=== PATIENT | male | born 1965 | race Caucasian/White ===

== ENCOUNTER 2024-08-12 08:33 | Emergency (ER) | payer SELFPAY ==
[2024-08-12 08:38] VITALS: BP 192/114
--- NOTE | 2024-08-12 10:17 | ED.GENMED ---
History of Present Illness
General
Chief Complaint: Abdominal Symptoms
Time Seen by Provider: 08/12/24 08:55
History of Present Illness
History of Present Illness:
59-year-old male presents complaining of abdominal hernia. Patient has had this hernia for some time but has gotten larger. It is becoming more uncomfortable to larger gets. He is tolerating oral intake. He denies nausea, vomiting or
constipation. Patient does have insurance barriers to outpatient follow-up.
Phy Exam
Physical Exam
Physical Exam:
General: Awake, Alert, Oriented X3. No acute distress.
Vitals: unremarkable
Head: Atraumatic
Eyes: Pupils equal, EOMI
Throat: Airway intact, no exudates
Neck: Trachea midline
Lungs: Clear and equal b/l
Heart: Regular rate, no murmurs
Abd: Soft, large umbilical hernia which is reducible. The skin overlying the hernia is not particularly erythematous, No pulsatile mass
Neuro: Nonfocal
Skin: Warm, dry, no rash
Extremities: pulses equal b/l, no edema
Course
Orders/Labs/Results
Orders:
Orders
08/12/24 10:24
Case Management Consult ONCE
Case Management Consult: Other
Requested By:: PT/FAMILY
Comment: Assistance with obtaining insurance
Vital Signs
Initial and Last Documented VS:
Initial Vital Signs
Temp Pulse Resp BP Pulse Ox
99.0 F 111 20 192/114 97
08/12/24 08:38 08/12/24 08:38 08/12/24 08:38 08/12/24 08:38 08/12/24 08:38
Last Documented Vital Signs
Temp Pulse Resp BP Pulse Ox
99.0 F 111 20 192/114 97
08/12/24 08:38 08/12/24 08:38 08/12/24 08:38 08/12/24 08:38 08/12/24 08:38
MDM/Problems Addressed
Differential Diagnosis Includes:
Abdominal wall hernia
MDM/Problems Addressed:
Patient presents with a abdominal wall hernia which is progressive in size but not causing any symptoms of obstruction or incarceration. Patient stable for discharge home. This is an outpatient follow-up situation. We connected the patient with
case management to help with insurance issues
*Critical Care Note
Total Time (30-74mins, 75-104mins- exclusive of procedures): Not Applicable
ED Attending Note
-
Portions of this chart may have been created with voice recognition software.� Occasional wrong word or��sound alike� substitutions may have occurred due to the inherent limitations of voice recognition software.
Discharge Plan
Departure
Patient Disposition: Home (Routine Discharge)
Date of Disposition: 08/12/24
Time of Disposition: 10:17
Patient with high blood pressure during this ER visit?: Yes
Condition: Good
Discharge Problem:
Hernia of abdominal wall
Instructions: Abdominal Hernia
Referrals:
[facility] [Outside]
NONE,* [Family Provider] -
Chad Garcia MD [Active] -
Discharge Date and Time
Print Language: FRENCH
--- NOTE | 2024-08-12 10:47 | CM ---
CM reviewed patient's chart. Consult placed because patient is uninsured. CM introduced self and role. Patient's friend, who assists with all his financial and insurance information and needs was also in the room. CM gave patient an 'uninsured
packet' which includes resources with several organization in [facility], financial assistance, rx savings card, [facility] and how to apply for MA.
Patient's friend had assisted in applying patient for MA, but missed the deadline to send a copy of a document. She and patient understand they will have to reapply for MA.
== END 2024-08-12 10:20 | disposition home or self-care (01) ==
LOC: EMR 08:33
PROVIDERS: EMERGENCY PHYSICIAN Emergency Medicine
DX: K42.9 Umbilical hernia without obstruction or gangrene (principal); R03.0 Elevated blood-pressure reading, without diagnosis of hypertension; Z59.7 Insufficient social insurance and welfare support
CPT/HCPCS: 99281

== ENCOUNTER 2024-10-13 03:36 | Emergency (ER) | payer SELFPAY ==
[2024-10-13 03:46] VITALS: BP 155/100
[2024-10-13 03:47] VITALS: BP 122/68
[2024-10-13 03:53] VITALS: BMI 45.0
[2024-10-13 04:00] VITALS: BP 114/65
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
[2024-10-13] MEDS: NSS 500 IV (04:25)
[2024-10-13 04:32] LABS: % Basophils 0.7 % (0-2); % Eosinophils 0.4 % (0-6); % Immature Granulocytes 0.6 % (0-0.5); % Lymphocytes 20.5 % (20.5-51.1); % Monocytes 5.5 % (1.7-9.3); % Neutrophils 72.3 % (42.2-75.2); Absolute Basophils 0.1 10^3/uL (0-0.2); Absolute Lymphocytes 1.4 10^3/uL (1.2-3.4); Absolute Monocytes 0.4 10^3/uL (0.1-0.6); Hematocrit 46.6 % (39.0-52.0); Hemoglobin 15.4 g/dL (13.0-18.0); Mean Corpuscular Hgb 29.8 pg (27.0-31.0); Mean Corpuscular Volume 90.1 fL (80.0-94.0); Mean Platelet Volume 8.7 fL (7.4-10.4); Nucleated Red Blood Cells % 0 % (-); Platelet Count 226 10^3/uL (130-400); Red Blood Cell Count 5.17 10^6/uL (4.70-6.10); Red Cell Dist. Width 13.5 % (11.5-14.5); White Blood Cell Count 6.9 10^3/uL (4.8-10.8)
[2024-10-13 04:55] LABS: ALT (SGPT) 23 U/L (0-50); AST (SGOT) 26 U/L (17-59); Albumin 4.4 g/dl (3.5-5.0); Alcohol 241 mg/dl; Alkaline Phosphatase 60 U/L (38-126); Blood Urea Nitrogen 19 mg/dl (9-20); Calcium 8.4 mg/dl (8.4-10.2); Carbon Dioxide 26 mmol/L (22-30); Chloride 101 mmol/L (98-107); Estimated Creatinine Clearance > 125 ml/min; Glucose 131 mg/dl (70-99); Potassium 4.1 mmol/L (3.5-5.1); Sodium 141 mmol/L (135-145); Total Bilirubin 0.3 mg/dl (0.2-1.3); Total Protein 7.4 g/dl (6.3-8.2); eGFR > 60.00
[2024-10-13] MEDS: MULTIVITAMIN 1011 ML IV (04:56)
[2024-10-13] MEDS: MULTIVITAMIN 1011 MG IV (04:56)
[2024-10-13 05:54] LABS: Amphetamines Negative (Negative); Barbiturates Negative (Negative); Benzodiazepines Negative (Negative); Buprenorphine Negative (Negative); Cocaine Negative (Negative); Marijuana Negative (Negative); Methadone Negative (Negative); Methamphetamines Negative (Negative); Opiates Negative (Negative); Phencyclidine Negative (Negative); Tricyclic Antidepressants Negative (Negative)
== END 2024-10-13 09:12 | disposition home or self-care (01) ==
LOC: EMR 03:36
PROVIDERS: EMERGENCY PHYSICIAN Emergency Medicine
DX: F10.129 Alcohol abuse with intoxication, unspecified (principal); V43.52XA Car driver injured in collision with other type car in traffic accident, initial encounter; Z65.3 Problems related to other legal circumstances; E66.01 Morbid (severe) obesity due to excess calories
CPT/HCPCS: 99284; 96365; 96366 ×2; 80053; 80306; 82077; 85025

== ENCOUNTER 2025-10-03 06:28 | Day surgery (SDC) | payer OTHER, SELFPAY ==
[2025-10-03] VITALS (9 sets, daily range): BP systolic 92–152; BP diastolic 52–85; BMI 41.3
[2025-10-03] MEDS: TYLENOL 1000 MG PO (11:26)
[2025-10-03] MEDS: NORMOSOL-R/PLASMALYTE-A 1000 IV (11:33)
--- NOTE | 2025-10-03 13:25 | W.SUR.PREOP ---
Pre-Operative Surgical Note
-
I have examined this patient prior to the performance of the scheduled procedure.
The patient's condition is unchanged from the time of the current History and
Physical and the patient is able to undergo the scheduled procedure.
--- NOTE | 2025-10-03 13:25 | HP.FOC2 ---
Focused History & Physical
Chief Complaint
HPI:
Chief Complaint: This is a 60-year-old male who presents with incarcerated ventral hernia
HPI / Indication for Planned Procedure: This is a 60-year-old male who presents with an incarcerated ventral hernia. Will plan for a robotic/open hybrid incarcerated ventral hernia repair with mesh.
Relevant Past Medical History: Negative
Relevant Social History: Negative
Relevant Family History: Negative
Relevant Past Surgical History: Negative
Review of Systems
Review of Pertinent Systems: All Systems Negative
Medication
See Medication form for detailed medications: Yes
Medication List (including Herbals & OTC):
lisinopril 5 mg tablet 5 mg PO DAILY 10/02/25
metoprolol succinate 50 mg tablet,extended release 24 hr 50 mg PO DAILY 10/02/25
tirzepatide (weight loss) 10 mg/0.5 mL subcutaneous solution (Zepbound) 10 mg SC WE 10/02/25
Medications Reviewed: Yes
Allergies and Reactions
Patient has Allergies: No
Noted Allergies and Reactions:
Allergy/AdvReac Type Severity Reaction Status Date / Time
No Known Allergies Allergy Verified 10/03/25 11:12
Pertinent Physical Exam
All Other Systems: Negative
Head/Neck: Normal
Diagnosis / Assessment
This is a 60-year-old male who presents with an incarcerated ventral hernia. Will plan for a robotic/open hybrid incarcerated ventral hernia repair with mesh.
Plan / Procedure
This is a 60-year-old male who presents with an incarcerated ventral hernia. Will plan for a robotic/open hybrid incarcerated ventral hernia repair with mesh.
Anesthesia/Sedation to be done by Anesthesia Provider: Yes
--- NOTE | 2025-10-03 14:32 | CM ---
Was asked to meet with pt's friend. I met with pt's friend Eryn who expressed concern about pt's living situation. She does not feel he can safely go back to his apartment, states another friend is at the apartment and said there are dog feces in
the apartment and there is not running water at one of the sinks and also evidence of back mold. Eryn said there is a team that can assist with clean up but she feels it is unsanitary for him to return there after just having surgery. Discussed he
will not qualify for SNF placement, also discussed going to a hotel but she is not sure he has the money for that. She does have phone numbers for family members and will reach out to see if he can stay with one of them. Suggested contacting [place]
[facility], she will reach out to them. Plan is for pt to be admitted overnight. CM will follow up with pt in am.
--- NOTE | 2025-10-03 17:43 | W.IMMPOSTOP ---
Surgical Immed Post Op Note
-
Primary Surgeon: Jorge Romero MD
Assisting Surgeon: None
Tractor Trailer Operator: Emily Hughes NP
Pre-op Diagnosis: Incarcerated ventral hernia
Post-op Diagnosis: Same
Procedure Performed:
1. Robotic assisted, open incarcerated ventral hernia repair with mesh
2. Partial omentectomy
3. Omphalectomy
Anesthesia Type: General
Specimen / Cultures: Hernia contents
Estimated Blood Loss: 11 cc
Complications: None
Operative Findings: Lopes catheter and NG tube were placed the on induction. Bilateral tap blocks were performed on entry. 4 cm umbilical/ventral hernia defect containing a significant amount of omentum which was resected. A preperitoneal flap
was made. The overlying skin of the umbilical defect was very thin and could not be salvaged so the skin along with the bellybutton was excised. A [address] coated polypropylene mesh was inserted through the defect prior to
closure with a running 0 symmetric. Pneumoperitoneum was reestablished and our flap was continued to accommodate the mesh which was secured in place with tacking 2-0 Vicryl sutures. The flap was then closed to completely exclude the mesh using 2-0
PDS suture. The midline defect was closed with 2-0 PDS suture. The subcutaneous space was closed with running 3-0 Vicryl sutures and the skin was closed with lou as were the port sites.
POST OP PLAN:
Imaging: None
Labs: Routine AM
Diet: Clears tonight, advance to Regular as tolerated
Analgesia: Tylenol 650mg q6 Shane, Dilaudid 0.5mg q2h PRN
Neuro/vascular checks: Per unit protocol
AC/AP: Hold Therapeutic AC, Ok for DVT PPx
Activity: Ad Bhavna
Wound/Incisions/Drains: Routine
Abx: None
Dispo: RNF, anticipate discharge home tomorrow pending pain control.
--- NOTE | 2025-10-03 18:45 | PTCARENOTE ---
received patient from PACU via bed around 183. Denies pain. Abdomen midline dressing with scant drainage. 3 lap sites left abdomen ENEDELIA with lou. Patient oriented to unit. Call lopez in reach.
[2025-10-03] MEDS: TORADOL 10 MG IV (19:48)
[2025-10-03] MEDS: TYLENOL 650 MG PO (19:50)
[2025-10-04] MEDS: TYLENOL PO ×2 (00:43→05:00)
[2025-10-04] MEDS: TORADOL 10 MG IV ×2 (00:44→05:44)
[2025-10-04 03:40] VITALS: BP 127/78
[2025-10-04 06:26] LABS: Hematocrit 42.3 % (39.0-52.0); Hemoglobin 14.4 g/dL (13.0-18.0); Mean Corp Hgb Conc. 34.0 g/dL (33.0-37.0); Mean Corpuscular Volume 88.9 fL (80.0-94.0); Platelet Count 279 10^3/uL (130-400); Red Cell Dist. Width 13.8 % (11.5-14.5)
[2025-10-04 06:49] LABS: Blood Urea Nitrogen 19 mg/dl (9-20); Calcium 7.8 mg/dl (8.4-10.2); Carbon Dioxide 25 mmol/L (22-30); Chloride 103 mmol/L (98-107); Estimated Creatinine Clearance 121 ml/min; Glucose 109 mg/dl (70-99); Potassium 4.3 mmol/L (3.5-5.1); Sodium 135 mmol/L (135-145); eGFR > 60.00
[2025-10-04 07:55] VITALS: BP 149/93
[2025-10-04] MEDS: TOPROL XL 50 MG PO (09:22)
[2025-10-04] MEDS: TYLENOL 650 MG PO (09:23)
--- NOTE | 2025-10-04 09:23 | W.PN.GS2 ---
Addendum entered and electronically signed by Asael Harrington MD 10/04/25 10:33:
I saw and examined the patient.
The Construction Tech's note was reviewed and I agree with the note.
Comment: Ambulating, voiding, passing flatus and BMs, pain controlled, exam approp, incisions cdi. OK for DC with ab binder.
Original Note:
Today's Communication / Plan
-
Discharge planning
Assessment / Plan
-
60 yo with incarcerated ventral hernia now POD #1 Robotic assisted, open incarcerated ventral hernia repair with mesh with omphalectomy and partial omentectomy
AFVSS
Doing well post op, following expected course
Plan:
Diet as tolerated
Analgesics prn
OOB/Ambulate. ABD binder with activity.
Reviewed d/c instructions
Dispo planning
Subjective Data
-
Date of Service: October 04, 2025
Pt seen and examined at bedside with Dr. Harrington. Denies significant pain. Denies n/v. Tolerating diet. Passing flatus, had a BM, voiding well.
Objective Data
-
Intake and Output
10/03/25 10/04/25 10/05/25
06:59 06:59 06:59
Intake Total 200 / 200
Output Total 250 / 250
Balance -50 / -50
Intake:
IV fluids (Total) 200 / 200
Normosol 200 / 200
Output:
Urine, Lopes 250 / 250
Other:
Number of approximated MODERATE 1
amounts of urine
Vital Signs
Temp Pulse Resp BP Pulse Ox
98.2 F 94 16 149/93 98
10/04/25 07:55 10/04/25 07:55 10/04/25 07:55 10/04/25 07:55 10/04/25 07:55
Lab Results
10/04/25 05:46
10/04/25 05:46
Calcium 7.8 mg/dl (8.4-10.2) L 10/04/25 05:46
Physical Exam
-
NAD
ABD soft, non-tender, non-distended
Midline dressing intat. [place] intact to port sites
--- NOTE | 2025-10-04 09:31 | CM ---
Chart reviewed. Spoke with Akhil at bedside
He lives alone in a studio apartment [address]
Independent with ADLs
Using RW for ambulation as needed
He has lots of friends in the area
States that his house is 'messy due to his friends dropping furniture'
He feels he could go home and recuperate on his own
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
PCP Dr. Rod
RX plan yes
Pharmacy [facility]
no hx of VN nor SNF
DC to go home with no services
CM left VM with his friend Eryn as requested for his DC
[phone]
No other Cm needs at this time. Spoke with JONAH Jara
--- NOTE | 2025-10-04 10:08 | W.DS.TRANS ---
DC Summary - Blanker Operator
-
Discharge Instructions:
Sleep Apnea Risk High
Discharge Diagnosis/Procedures Robotic assisted incarcerated ventral hernia
repair
Diet As tolerated
Activity No strenuous activity
Bathing Restrictions OK to Shower
Instructions:
Stand-Alone Forms:
Changes to Home Medications: No
Discharge Medications:
DC Medications w/original date entered in [facility]
lisinopril 5 mg tablet 5 mg PO DAILY 10/02/25
metoprolol succinate 50 mg tablet,extended release 24 hr 50 mg PO DAILY 10/02/25
tirzepatide (weight loss) 10 mg/0.5 mL subcutaneous solution (Zepbound) 10 mg SC WE 10/02/25
oxycodone 5 mg tablet 5 mg PO Q4HPRN PRN breakthrough/severe pain #20 tabs 10/04/25
Home Medication Changes
Pending Results: No
--- NOTE | 2025-10-07 12:59 | OR.RPT ---
Operative Report
Operative Report
Patient Name: Akhil Curran
: 1965
Date of Operation: 10/03/2025
Preoperative Diagnosis: Incarcerated ventral hernia
Postoperative Diagnosis: Same
Procedure(s):
1. Robotic assisted, open incarcerated ventral hernia repair with mesh
2. Partial omentectomy
3. Omphalectomy
Surgeon(s):
Dr. Romero
Donor Services Specialist(s):
Emily Hughes NP
Anesthesia: General
Estimated Blood Loss: 11 cc
Urine Output: None
Drains/Lines/Implants:
15 cm ovoid Bard Ventralight ST (coated polypropylene mesh)
Specimens:
Hernia contents
HPI/Surgical Indications:
This is a 60-year-old male who was seen in my office for a symptomatic umbilical bulge and diagnosed with an incarcerated ventral hernia containing omentum. He was counseled on weight loss which she was able to do with some limited success prior to
surgery. Risks/Benefits/Alternatives were discussed at length, and the patient agreed to proceed with a minimally invasive/open hybrid approach.
Operative Findings: Lopes catheter and NG tube were placed the on induction. Bilateral tap blocks were performed on entry. 4 cm umbilical/ventral hernia defect containing a significant amount of omentum which was resected. A preperitoneal flap
was made. The overlying skin of the umbilical defect was very thin and could not be salvaged so the skin along with the bellybutton was excised. A [address] coated polypropylene mesh was inserted through the defect prior to
closure with a running 0 symmetric. Pneumoperitoneum was reestablished and our flap was continued to accommodate the mesh which was secured in place with tacking 2-0 Vicryl sutures. The flap was then closed to completely exclude the mesh using 2-0
PDS suture. The midline defect was closed with 2-0 PDS suture. The subcutaneous space was closed with running 3-0 Vicryl sutures and the skin was closed with lou as were the port sites.
Procedure Description:
The patient was brought to the Operating Room and placed in the supine position with the arms tucked. IV antibiotics were infused and Venodyne stockings placed. Following uneventful induction of general endotracheal anesthesia, an orogastric tube
as well as Lopes was placed. The abdomen was prepped and draped in the usual sterile fashion. The abdomen was entered using a Veress technique which required 1 pass, pneumoperitoneum to 15 mmHg was obtained without difficulty. An 8mm trochar was
passed through the abdominal wall roughly 20 cm laterally from the defect in the left upper quadrant, we then confirmed that no inadvertent injury was made while passing the trocar or Veress needle. We then placed two additional 8 mm ports in the
left lower quadrant. Bilateral tap blocks were performed. The robot was docked. We then introduced our prograsper through the inferior/left hand port and a monopolar scissors through the superior port. We then turned our attention to the hernia
which had a significant amount of incarcerated omentum. We really able to dissect part of it out, but there was still a significant amount of omentum incarcerated into the defect. We then began taking a flap down roughly 8 cm away from the defect
and roughly 15 cm in length taking care to stay in the pretransversalis plane. The preperitoneal fat was taken down off of the posterior rectus sheath both superior and inferior to the hernia defect such that we were able to get our 'volcano sign'.
We then worked on reducing the defect but this was unsuccessful so the omentum was truncated and hemostasis was achieved along the cut edge. We then continued our dissection out laterally for an additional 8 cm. At this point the robot was
undocked and I moved to the bedside to complete the open part of the operation. The overlying skin was very thin so an elliptical incision was made to excise what was likely can be unsalvageable overlying skin. The hernia sac was immediately
identified and entered. There was adhesions from the omentum to the underlying skin which is what ultimately prevented successful robotic reduction of this very large volume hernia. The entire omentum specimen was removed and sent as a specimen as
well as some additional intra-abdominal omentum that had been set aside. The hernia sac was dissected off of the surrounding tissues and taken down to the level of the fascia. The fascial defect measured roughly 4 cm. This was closed with a 0
STRATAFIX suture in the longitudinal direction. Before closure a 15 x [address] coated polypropylene mesh was cut to 15 cm round and inserted through the defect into the abdomen. After closure of the fascial defect pneumoperitoneum was
reestablished which confirmed that our repair was airtight. The robot was redocked. The preperitoneal pocket was extended slightly and ultimately measured 15 x 15 cm. Using the stay suture on the mesh, it was pulled taut to the abdominal wall and
secured in multiple locations with interrupted 2-0 Vicryl sutures to the posterior rectus sheath. The flap was then closed with a 2-0 barbed PDS suture. There was multiple defects in the flap which were closed with Vicryl suture, part of the
retained hernia sac was used to cover the defect such that the mesh was completely covered.
All sutures were removed. Intra-abdominal hemostasis was confirmed. The robot was undocked. The ports were removed under direct visualization and pneumoperitoneum was evacuated. I then scrubbed back in to better evaluate the periumbilical wound.
The skin around the johnybutton was very thin and I felt he was at high risk for developing skin necrosis and potentially an infection due to this. Given the presence of the mesh I elected to do an omphalectomy. The umbilical stalk was divided and
the overlying umbilicus was removed. The subcutaneous tissue of the midline wound was then approximated with multiple layers of 3-0 Vicryl suture. There was still a fair amount of tension so I elected to close the skin with lou. His lateral
port sites were also closed with skin lou. A midline dressing was placed. Counts were correct and overall, the patient tolerated the procedure well and was taken to the Recovery Room postoperatively in stable condition.
I was the attending physician and performed the procedure with assistance of the PA above. The assistance of JAVI Cam was required due to the complexity of the procedure. During the procedure Lexi assisted with tissue retraction, resection,
and closure of the wound. During the procedure Lexi also assisted with port placement, instrument and needle exchanges, and closure of the wound. I was present for all portions of the case.
Jorge Romero MD
== END 2025-10-04 10:46 | disposition home or self-care (01) ==
LOC: SDS 06:28
PROVIDERS: ATTENDING PHYSICIAN Surgery
DX: K43.6 Other and unspecified ventral hernia with obstruction, without gangrene (principal)
CPT/HCPCS: 49594; 80048; 85027; 88304; C1781